=== PATIENT | male | born 1995 | race Caucasian/White ===

== ENCOUNTER 2017-03-13 14:35 | Emergency (ER) | payer BC ==
--- NOTE | ~2017-03-13 | ER ---
PATIENT'S NAME: GYPSY PASCAL [facility] AGE: 22 Y [address] ROOM: [place] [address] LOCATION: [facility] ADMIT DATE: 03/13/2017 ER/Outpatient Report DISCHARGE DATE: FAMILY PHYSICIAN: PHYSICIAN, NO ATTENDING PHYSICIAN: Mat Mendoza Time of Arrival: 1440 hours. Time of Evaluation: 1445 hours. SUBJECTIVE: CHIEF COMPLAINT: Headache. HISTORY OF PRESENT ILLNESS: The patient is a pleasant 22-year-old male, who arrives to the emergency department via private auto complaining of headache that started about 2 hours ago. States it is gradually worsening overall. Right-sided. Constant pain. He is light and sound sensitive. Negative for nausea or vomiting. About 30 minutes prior to onset, he had some left-sided weakness in his hand while eating lunch. This caused him to drop food. It was transient, and his feeling, function, and strength have all returned prior to the onset of the headache 2 hours ago. He denies any halos around light. No double vision. Home treatment includes 1000 mg of ibuprofen taken about 2 hours ago orally along with 2 tablets of Excedrin Migraine. He has seen little to no relief in his headache. FAMILY HISTORY: Includes a heart attack in his father and both grandparents around age 50. His paternal grandfather has also had a stroke at advanced age, above 60 years' old. PERTINENT REVIEW OF SYSTEMS: All systems were reviewed by me and negative unless otherwise stated in the HPI. Ten-point review of systems. PERTINENT MEDICAL HISTORY: Migraine history. PAST SURGICAL HISTORY: Open reduction and internal fixation of right femur 3+ years ago. No ongoing issues regarding the leg. ALLERGIES: NO KNOWN DRUG ALLERGIES. PATIENT'S NAME: GYPSY PASCAL [facility] AGE: 22 Y [address] ROOM: [place] [address] LOCATION: [facility] ADMIT DATE: 03/13/2017 ER/Outpatient Report DISCHARGE DATE: FAMILY PHYSICIAN: PHYSICIAN, NO ATTENDING PHYSICIAN: Mat Mendoza MEDICATIONS: No medications at this time routinely. SOCIAL HISTORY: The patient is a nonsmoker of tobacco, but does imbibe alcohol and occasional use of marijuana. OBJECTIVE: VITAL SIGNS: Height 6 feet even, weight 113.5 kg, blood pressure 156/77, pulse 67, respirations 14 per minute, temperature 98.1 degrees Fahrenheit taken temporal scanner, SpO2 at 100% on room air, and Kalin Coma Score of 15. Current pain 7/10. GENERAL: The patient is a well developed, well nourished, obese 22-year-old male, in mild distress. He is calm. Alert and oriented to person, place, and time. Recalls all events accurately and repeatedly and reliably. HEENT: Head is atraumatic and normocephalic. Eyes: Conjunctivae clear and without discharge. Pupils are PERRLA bilaterally. EOMFI bilaterally. No nystagmus. Funduscopic exam normal. Ears: Showed tympanic membranes with good light reflex bilaterally. Auditory canals are patent bilaterally. Nose: Turbinates are pink and not swollen. No drainage. Throat with midline uvula. No exudates, erythema, or tonsillar hypertrophy. NECK: Supple and without lymphadenopathy. Trachea midline. No JVD. LUNGS: Clear to auscultation bilaterally. No wheezes, crackles, rhonchi, or stridor. Normal respiratory effort. HEART: Regular rate and rhythm. No S3, S4, or extra sounds. NEURO: Cranial nerves 2 through 12 are grossly intact. Strength is 5/5 bilaterally in the upper and lower extremities for flexion and extension. Gait is steady and without assistance. Romberg negative. Deep tendon reflexes +2/4 bilaterally at the knee level for quadriceps. Painter Bottom strengths are equal bilaterally. ASSESSMENT: Migraine with aura. PLAN: Started an IV on the patient for 1 L fluid bolus wide open. The patient also received Compazine 10 mg and Benadryl 50 mg IV push. The patient had gradual reduction and control of his headache symptoms. Pain was resolved prior to discharge and he was able to be discharged home via private auto. His girlfriend was able to drive him home. Advised the patient to return home and rest. Stressed taking medications as directed on the packaging. Stressed the importance of ibuprofen taken in no greater quantities than 800 mg at a time. Push fluids. Advised him to follow up with his regular physician within the PATIENT'S NAME: GYPSY PASCAL [facility] AGE: 22 Y [address] ROOM: [place] [address] LOCATION: [facility] ADMIT DATE: 03/13/2017 ER/Outpatient Report DISCHARGE DATE: FAMILY PHYSICIAN: PHYSICIAN, NO ATTENDING PHYSICIAN: Mat Mendoza next 7 days. Take all meds as prescribed. Discussed med risks, side effects, and benefits in detail with the patient. Give plenty of rest and liquids. Take Tylenol or ibuprofen as directed for fever or discomfort unless allergic, asthmatic, or aspirin sensitive. Return to the emergency department or primary care provider if symptoms persist or worsen. MARQUISE OCASIO PA-C FOR MD DARIO BARRAGAN/modl /[id number] d: 03/14/17 0150 t: 04/03/17 1153, OUTPATIENT REPORT
== END 2017-03-13 16:10 | disposition disaster alternative care site (69) ==
LOC: GMED 14:35
DX: G43.109 Migraine with aura, not intractable, without status migrainosus (principal); Z98.890 Other specified postprocedural states; Z79.899 Other long term (current) drug therapy
CPT/HCPCS: J0780; J1200; J7030